=== PATIENT | female | born 2005 | race Hispanic/Latino ===

== ENCOUNTER 2024-06-08 15:28 | Emergency (ER) | payer BC ==
--- OUTSIDE RECORDS SUMMARY | 2024-06-08 15:30 | XMS REPORT | Continuity of Care Document ---
Author Name Unknown Address [address] [facility] [place] [address] [facility] Address [address] [facility] [place] [address] Care Team Providers Care Remelter Name Role Phone PCP, PATIENT DOES NOT HAVE A Primary Care Physic carin Unavailable DARRYL VU Attending Clinician Unavailable Darryl Diop Attending Clinician Unknown, Attending Attending Clinician UnavailDerian Gonzales Attending Clinician [phone] DERIAN GARVEY Attending Clinician Unavailable Doctor Unassigned, [place] Attending Clinician U navailable Payers Payer Name Policy Type Policy Number Effective Date Expirati on Date Source [facility] [id number] 2019 00:00:00 Allergies, Adverse Reactions, Alerts Allergy Name Allergy Type Status Severity Reaction(s) Onset Date Inactive Date Treating Clinician Comments Source NO KNOWN ALLERGIE S Drug Class Active [facility] Social History Social Habit Start Date Stop Date Quantity Comments Source [facility] Tobacco use and exposure 2023-06-07 00:00:00 2023-06-07 00:00:00 Smokeless tobacco non-user [facility] History of Social function 2019-12-31 00:00:00 2019-12-31 00:00:00 [facility] Sex Assigned At 2005 00:00:00 2005 00:00:00 [facility] Smoking Status Start Date Stop Date Source Never smoked tobacco [facility] Medications Ordered Medication Name Filled Medication Name Start Date Stop Date Current Medication? Ordering Clinician Indication Dosage Frequency Signature (SIG) Comments Components Source fluconazole (DIFLUCAN) 150 mg tablet 09-09 00:00: 00 09-12 04:59 :00 No [id number] 150mg Take 1 tablet by mouth in the morning for 2 doses. [facility] acute hospital dexamethaso ne (DECADRON) injection 8 mg 06-07 23:45: 00 06-07 22:49 :00 No [id number] 8mg [facility] ketorolac (TORADOL) injection 30 mg 06-07 23:30: 00 06-07 22:49 :00 No [id number] 30mg [facility] methocarbam oL 500 mg tablet 06-07 00:00: 00 06-15 05:59 :00 No [id number] 500mg Take 1 tablet by mouth 4 (four) times daily for 7 days. [facility] acute hospital meloxicam (MOBIC) 15 mg tablet 06-07 00:00: 00 06-15 05:59 :00 No [id number] 15mg Take 1 tablet by mouth in the morning for 7 days. [facility] acute hospital Vital Signs Vital Name Observation Time Observation Value Comments S didi Systolic blood pressure 2023-09-10 20:13:00 116 mm[Hg] [facility] Diastolic blood pressure 2023-09-10 20:13:00 84 mm[Hg] [facility] Heart rate 2023-09-10 20:13:00 91 /min [facility] Body temperature 2023-09-10 20:13:00 36.89 Lidia [facility] Respiratory rate 2023-09-10 20:13:00 16 /min [facility] Body height 2023-09-10 20:13:00 162.6 cm [facility] Body weight 2023-09-10 20:13:00 49.896 kg [facility] BMI 2023-09-10 20:13:00 18.88 kg/m2 [facility] Body mass index (BMI) [Percentile] Per age and sex 2023-09-10 20:13:00 15.37 % [facility] Oxygen saturation in Arterial blood by Pulse oximetry 2023-09-10 20:13:00 98 /min [facility] Systolic blood pressure 2023-06-07 22:31:00 108 mm[Hg] [facility] Diastolic blood pressure 2023-06-07 22:31:00 73 mm[Hg] [facility] Heart rate 2023-06-07 22:31:00 85 /min [facility] Body temperature 2023-06-07 22:31:00 36.94 Lidia [facility] Respiratory rate 2023-06-07 22:31:00 16 /min [facility] Body weight 2023-06-07 22:31:00 51.512 kg [facility] Oxygen saturation in Arterial blood by Pulse oximetry 2023-06-07 22:31:00 100 /min [facility] Procedures Procedure Date / Time Performed Performing Clinicia n Source POCT URINALYSIS 2023-09-10 20:16:00 [facility] 2023-09-10 20:16:00 Brayan Vu [facility] ASSIGNMENT OF BENEFITS 2023-06-07 22:15:20 Docto r Unassigned, [place] [facility] Encounters Start Date/Time End Date/Time Encounter Type Admission Type Attending Clinicians Care Facility Care Department Encounter ID Source 2023-09-10 15:00:00 2023-09-10 15:27:33 Outpatient R DARRYL VU [facility] [id number] General acute hospital 2023-09-10 15:00:00 2023-09-10 15:27:33 Urgent Care Darryl Vu Unknown, Attending [facility] [id number] General acute hospital 2023-06-07 16:20:00 2023-06-07 16:56:13 Urgent Care Derian Garvey Unknown, Attending [facility] [id number] General acute hospital 2023-06-07 16:20:00 2023-06-07 16:56:13 Outpatient R EMSELMA ALFONSOMAGDIEL [facility] [id number] General acute hospital 2023-06-07 00:00:00 2023-06-07 00:00:00 Orders Only Doctor Unassigned, [place] [facility] [id number] General acute hospital Results Test Description Test Time Test Comments Results Result Co mments Source [facility] [id number] 20:21:00* Test Item Value Reference Range Interpretation Comme nts POCT PREG (test code = 1605) Negative On board controls acceptable with C Line (test code = 3574) Yes POCT PREG LOT # (test code = 3575) POCT PREG TEST DATE ( test code = 3576) Lab Interpretation (test cod e = [id number]) Normal [facility]
[2024-06-08] MEDS ORDERED: KETOROLAC 30 MG/ML INJ ONE (16:08)
--- NOTE | 2024-06-08 16:50 | RAD REPORT ---
EXAMINATION: TWO VIEW CHEST XR CLINICAL INDICATION: Female, 18 years old. [facility] right posterior/lateral chest pain;Chest pain Bed Name: 1 TECHNIQUE: 2 view radiographs of the chest were performed. COMPARISON: No prior exam. FINDINGS: The lungs are well inflated and clear. No pneumothorax or sizable effusion. The heart is normal in si ze. Mediastinal contours are unremarkable. IMPRESSION: No acute or significant abnormalities.
--- NOTE | 2024-06-08 16:59 | ER ---
Nurse's Notes [facility] Name: Argelia Ruiz Age: 18 yrs Sex: Female : 2005 Arrival Date: 06/08/2024 Time: 15:28 Bed 18 Private MD: Diagnosis: Chest pain, unspecified Presentation: 06/08 15:40 Chief complaint: Patient states: back pain and SOB. Coronavirus screen: Client presents iw with at least one sign or symptom that may indicate coronavirus-19. Ebola Screen: No symptoms or risks identified at this time. Initial Sepsis Screen: Does the patient meet any 2 criteria? No. Patient's initial sepsis screen is negative. Does the patient have a suspected source of infection? No. Patient's initial sepsis screen is negative. Risk Assessment: Do you want to hurt yourself or someone else? Patient reports no desire to harm self or others. 15:40 Method Of Arrival: Ambulatory iw 15:40 Acuity: NANCY 3 iw 15:40 Onset of symptoms was June 08, 2024. iw Historical: - Allergies: 15:42 No Known Allergies; iw - Home Meds: 15:42 None [Active]; iw - PMHx: 15:42 None; iw - PSHx: 15:42 None; iw - Immunization history:: Adult Immunizations not up to date. - Infectious Disease History:: Denies. - Social history:: Smoking status: Reported history of juuling and/or vaping. - Family history:: not pertinent. - Hospitalizations: : No recent hospitalization is reported. Screenin:24 [facility] ED Fall Risk Assessment (Adult) History of falling in the last 3 months, iw including since admission No falls in past 3 months (0 pts) Confusion or Disorientation No (0 pts) Intoxicated or Sedated No (0 pts) Impaired Gait No (0 pts) Mobility Assist Device Used No (0 pt) Altered Elimination No (0 pt) Score/Fall Risk Level 0 - 2 = Low Risk Oriented to surroundings, Maintained a safe environment, Educated pt \T\ family on fall prevention, incl call for assistance when getting out of bed, Assessed \T\ reinforced patient's understanding of fall precautions, Provided non-skid footwear, Hourly rounding (assess needs \T\ fall precautionary measures) done, Used ambulatory aids as needed (educated on \T\ assisted with), Used gait belt as appropriate. Abuse screen: Denies threats or abuse. Denies injuries from another. Nutritional screening: No deficits noted. Tuberculosis screening: No symptoms or risk factors identified. Assessment: 16:23 General: Appears in no apparent distress. comfortable, Behavior is calm, cooperative, iw appropriate for age. Pain: Complains of pain in right lateral posterior chest Pain does not radiate. Pain currently is 7 out of 10 on a pain scale. Quality of pain is described as throbbing, Pain began suddenly, Is continuous. Neuro: Level of Consciousness is awake, alert, obeys commands, Oriented to person, place, time, situation, Appropriate for age. Cardiovascular: Capillary refill < 3 seconds Patient's skin is warm and dry. Rhythm is sinus rhythm. Respiratory: Airway is patent Respiratory effort is even, unlabored, Breath sounds are clear bilaterally. GI: Abdomen is flat, non-distended. : No signs and/or symptoms were reported regarding the genitourinary system. EENT: No signs and/or symptoms were reported regarding the EENT system. Derm: No signs and/or symptoms reported regarding the dermatologic system. Musculoskeletal: No signs and/or symptoms reported regarding the musculoskeletal system. Vital Signs: 15:40 BP 124 / 89; Pulse 102; Resp 20; Temp 98; Pulse Ox 100% on R/A; Weight 53.52 kg; Height iw 5 ft. 4 in. ; Pain 6/10; 16:23 BP 115 / 73; Pulse 74; Resp 18; Pulse Ox 100% on R/A; iw 15:40 Body Mass Index 20.25 (53.52 kg, 162.56 cm) - Percentile 31.6 % iw 15:40 Pain Scale: Adult iw ED Course: 15:34 Patient arrived in ED. ra3 15:36 Lokesh Blackwell MD is Attending Physician. rn 15:41 Triage completed. iw 15:42 Arm band placed on. iw 16:22 XRAY Chest Pa And Lat (2 Views) In Process Unspecified. EDMS 16:22 Ele Singletary, RN is Primary Nurse. iw 16:24 Patient has correct armband on for positive identification. Placed in gown. Bed in low iw position. Call light in reach. Side rails up X2. surveillance monitor on. Pulse ox on. NIBP on. Door closed. Noise minimized. Warm blanket given. 16:24 No provider procedures requiring assistance completed. iw 17:14 Patient did not have IV access during this emergency room visit. ld1 Administered Medications: 16:18 Drug: Ketorolac IM 15 mg IM once Route: IM; Site: right deltoid; iw 17:00 Follow up: Response: No adverse reaction iw Medication: 16:24 VIS not applicable for this client. iw Outcome: 16:59 Discharge ordered by . rn 17:14 Discharged to home ambulatory, ld1 17:14 Condition: stable 17:14 Discharge instructions given to patient, Instructed on discharge instructions, follow up and referral plans. Demonstrated understanding of instructions, follow-up care, medications, Prescriptions given X 1, 17:14 Patient left the ED. ld1 Signatures: Dispatcher [employer] EDMS Ele Singletary, RN RN iw Lokesh Blackwell MD MD rn Sims, Lauren, RN RN ld1 Galina Swanson ra3 Corrections: (The following items were deleted from the chart) 15:43 15:40 BP 124 / 89; Pulse 102bpm; Resp 20bpm; Pulse Ox 100% RA; Temp 98F; iw iw
--- NOTE | 2024-06-08 16:59 | EDPHYS ---
Physician Documentation [facility] Name: Argelia Ruiz Age: 18 yrs Sex: Female : 2005 Arrival Date: 06/08/2024 Time: 15:28 Bed 18 Private MD: ED Physician Lokesh Blackwell HPI: 06/08 15:44 This 18 yrs old Female presents to ER via Ambulatory with complaints of rn Breathing Difficulty. 15:44 The patient or guardian reports chest pain that is located primarily in the right rn lateral posterior chest. The pain does not radiate. Associated signs and symptoms: Pertinent positives: cough, Pertinent negatives: abdominal pain, shortness of breath, syncope, vomiting. The chest pain is described as sharp, stabbing. Modifying factors: The symptoms are alleviated by nothing. the symptoms are aggravated by deep breath. Severity of pain: At its worst the pain was moderate in the emergency department the pain is unchanged. The patient has not experienced similar symptoms in the past. Patient reports got out of bed recently and started to have right posterior lateral chest pain. Not sure if it is more back or chest. Denies injury or trauma. Has had a cough and cold recently. Also vapes. No abdominal pain. No bowel or bladder issues. No hemoptysis.. Historical: - Allergies: 15:42 No Known Allergies; iw - Home Meds: 15:42 None [Active]; iw - PMHx: 15:42 None; iw - PSHx: 15:42 None; iw - Immunization history:: Adult Immunizations not up to date. - Infectious Disease History:: Denies. - Social history:: Smoking status: Reported history of juuling and/or vaping. - Family history:: not pertinent. - Hospitalizations: : No recent hospitalization is reported. ROS: 15:44 Constitutional: Negative for fever, chills, and weight loss, ENT: Negative for injury, rn pain, and discharge, Cardiovascular: Negative for chest pain, palpitations, and edema, Respiratory: Positive for cough and right-sided chest pain Abdomen/GI: Negative for abdominal pain, nausea, vomiting, diarrhea, and constipation, MS/Extremity: Negative for injury and deformity, Neuro: Negative for headache, weakness, numbness, tingling, and seizure, Exam: 15:44 Constitutional: This is a well developed, well nourished patient who is awake, alert, rn tearful but ambulatory to room without difficulty or assistance Cardiovascular: Tachycardic, regular. Turned into regular rate once stopped crying Respiratory: Speaking full sentences, unlabored. No increased work of breathing, no retractions or nasal flaring. Abdomen/GI: Soft, nontender Back: No spinal tenderness. No costovertebral tenderness. Full range of motion. 16:57 ECG was reviewed by the Attending Physician. rn Vital Signs: 15:40 BP 124 / 89; Pulse 102; Resp 20; Temp 98; Pulse Ox 100% on R/A; Weight 53.52 kg; Height iw 5 ft. 4 in. ; Pain 6/10; 16:23 BP 115 / 73; Pulse 74; Resp 18; Pulse Ox 100% on R/A; iw 15:40 Body Mass Index 20.25 (53.52 kg, 162.56 cm) - Percentile 31.6 % iw 15:40 Pain Scale: Adult iw MDM: 15:36 Medical Screening Exam initiated rn 16:58 Data reviewed: vital signs, nurses notes, EKG, radiologic studies, plain films, and as rn a result, I will discharge patient. Counseling: I had a detailed discussion with the patient and/or guardian regarding the historical points, exam findings, and any diagnostic results supporting the discharge/admit diagnosis, radiology results, the need for outpatient follow up, to return to the emergency department if symptoms worsen or persist or if there are any questions or concerns that arise at home. Special discussion: Based on the patient's history, exam, and Dx evaluation, there is no indication for emergent intervention or inpatient Tx. It is understood by the patient/guardian that if the Sx's persist or worsen they need to return immediately for re-evaluation. I discussed with the patient/guardian in detail that at this point there is no indication for admission to the hospital. It is understood, however, that if the symptoms persist or worsen the patient needs to return immediately for re-evaluation. ED course: No acute findings and chest x-ray per my interpretation. No pneumothorax or pneumonia per my interpretation. EKG normal. Normal vital signs without oxygen requirement. No direct trauma. Improved after Toradol. Recommend DC home with anti-inflammatory medication with return precautions. Also recommend cessation of vaping.. 06/08 15:42 Order name: XRAY Chest Pa And Lat (2 Views); Complete Time: 16:56 rn 06/08 15:42 Order name: EKG - Nurse/Tech; Complete Time: 16:18 rn EC:57 Rate is 65 beats/min. Rhythm is regular. QRS [place] is Normal. RI interval is normal. QRS rn interval is normal. QT interval is normal. No Q waves. T waves are Normal. No ST changes noted. Clinical impression: NSR w/ Non-specific ST/T Changes. Interpreted by me. Reviewed by me. Administered Medications: 16:18 Drug: Ketorolac IM 15 mg IM once Route: IM; Site: right deltoid; iw 17:00 Follow up: Response: No adverse reaction iw Disposition Summary: 06/08/24 16:59 Discharge Ordered Notes: Location: Home rn Problem: new rn Symptoms: have improved rn Condition: Stable rn Diagnosis - Chest pain, unspecified rn Followup: rn - With: Private Physician - When: As needed - Reason: Recheck today's complaints, Re-evaluation by your physician Discharge Instructions: - Discharge Summary Sheet rn - Nonspecific Chest Pain, Adult rn Forms: - Medication Reconciliation Form rn - Antibiotic arc furnace operator - Prescription Opioid Use rn - Patient Portal Instructions rn - Leadership Thank You Letter rn Prescriptions: - Diclofenac Sodium 75 mg Oral tablet, delayed release (enteric coated) - take 1 tablet ORAL route 2 times per day; 14 tablet; Refills: 0, Product rn Selection Permitted Signatures: Dispatcher [employer] Ele Rene RN RN iw Lokesh Blackwell MD MD internal communications intern: (The following items were deleted from the chart) 15:37 15:37 Chest Single View+[id number].[email or web address].[email or web address] ordered. EDLA MELANIA
[2024-06-09 16:58] VITALS: BP 115/73; TEMP 98; O2SAT 100
--- NOTE | 2024-06-11 12:02 | EKG ---
Test Date: 2024-06-08 Test Time: 16:19:49 Puppet Engineer: LISA MEASUREMENT RESULTS: Intervals: Rate: 65 MD: 168 QRSD: 132 QT: 414 QTc: 430 [place]: P: 53 MD: 168 QRS: 54 T: 50 INTERPRETIVE STATEMENTS: Normal sinus rhythm with sinus arrhythmia Nonspecific intraventricular block Abnormal ECG Compared to ECG 10/08/2018 17:40:59 No significant changes Electronically Signed On 06-11-24 11:59:32 HOSPITAL SCIENTIST by Prabhjot Alvarez
== END 2024-06-08 17:14 | disposition home or self-care (01) ==
LOC: ER 15:28
DX: R07.9 Chest pain, unspecified (principal)
CPT/HCPCS: 71046; 93005; 96372; 99284